=== PATIENT | female | born 1965 | race African-American/Black ===

== ENCOUNTER → 2019-09-13 | Outpatient (CLI) | payer BC | LOC: CAT 13:55 | DX: J32.0 Chronic maxillary sinusitis (principal); J32.9 Chronic sinusitis, unspecified; J34.2 Deviated nasal septum ==

== ENCOUNTER → 2020-06-18 | Outpatient (CLI) | payer BC | LOC: ULTRA 09:23 | PROVIDERS: ATTEND Nurse Practitioner | DX: K80.80 Other cholelithiasis without obstruction (principal); R94.5 Abnormal results of liver function studies; K76.0 Fatty (change of) liver, not elsewhere classified ==

== ENCOUNTER → 2020-07-10 | Outpatient (CLI) | payer BC ==
[~2020-07-10] MED LIST: ADVIL200 M3 PO; AZELASTINE205.5 MCG/ NASAL; BENADRYL25 MG PO; COLACE 100 MG100 MG PO; HYDROCODON-ACE1 EAC7 PO; LOPRESSOR50 MG PO; LOSARTAN-HCTZ1 EAC3 PO; MIRALAX17 GM PO; TUMS200 MG PO; XOLAIR150 MG/1 M SUBQ; ZYRTEC10 M5 PO
== END ==
LOC: LAB 10:12
PROVIDERS: ATTEND Student in an Organized Health Care Education/Training Program
DX: Z01.818 Encounter for other preprocedural examination (principal); Z11.59 Encounter for screening for other viral diseases

== ENCOUNTER 2020-07-14 06:06 | Day surgery (SDC) | payer BC ==
[~2020-07-14] VITALS: Ht 172.7 cm; Wt 139.7 kg
[~2020-07-14 06:06] MED LIST changes: -COLACE 100 MG100 MG PO; -HYDROCODON-ACE1 EAC7 PO; -MIRALAX17 GM PO
[2020-07-14 07:03] LABS: HEMATOCRIT 37.2 % (37.0-47.0); HEMOGLOBIN 12.5 gm/dL (12.0-15.0); MCH 36.3 pg (26.0-34.0); MCHC 33.6 g/dL (28.0-37.0); MCV 108.2 fL (80.0-100.0); RBC 3.44 mil/uL (4.20-5.00); RDW 15.7 % (10.5-14.5); WBC 7.4 thou/uL (4.0-11.0)
[2020-07-14 07:40] LABS: ALBUMIN 3.6 g/dL (3.4-5.0); CALCIUM 9.6 mg/dL (8.5-10.1); CREATININE 1.5 mg/dL (0.6-1.0); POTASSIUM 4.1 mmol/L (3.5-5.1); TOTAL BILIRUBIN 1.4 mg/dL (0.2-1.0); TOTAL PROTEIN 7.6 g/dL (6.4-8.2)
[2020-07-14 08:36] VITALS: BP 125/78
[2020-07-14] MEDS ORDERED: MIRALAX17 GM PO (09:10)
[2020-07-14] MEDS ORDERED: HYDROCODON-ACE1 EAC7 PO (09:10)
[2020-07-14] MEDS ORDERED: COLACE 100 MG100 MG PO (09:10)
[2020-07-14 09:32] VITALS: BP 125/78
--- NOTE | 2020-07-14 16:06 | EKG ---
[facility] [place] [address] ELECTROCARDIOGRAM REPORT Name: ERUM OLMOS Room #: DEP [facility] M.R.#: [id number] Admission: 07/14/20 Attend Phys: Ty Parson MD Discharge: 07/14/20 Date of : 67 Report #: [id number] THIS REPORT FOR: cc: Casey Hopper Steven F. DO Couchonnal, Luis F. MD ~ THIS REPORT FOR: //name// 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: greyson : 1965 Requested By: hSira Mandujano Order Number: [id number] MD: Roosevelt Cottrell Measurements Intervals [place] Rate: 100 P: 70 W[place]: 153 QRS: 28 QRSD: 89 T: 49 QT: 366 QTc: 473 Interpretive Statements Sinus tachycardia Atrial premature complex Consider right atrial enlargement Baseline wander in lead(s) I No previous ECG available for comparison Electronically Signed On 07-14-2020 16:06:24 CDT by Roosevelt Cottrell [email or web address] <ELECTRONICALLY SIGNED> By: Roosevelt Cottrell MD 07/14/20 1606 0639 0639 Roosevelt Cottrell MD /EPI
--- NOTE | 2020-07-17 12:06 | PATH ---
[facility] [address] [place] [address] PATHOLOGY RPT PROCEDURE Name: ERUM OLMOS Room #: DEP [facility] M.R.#: [id number] Admission: 07/14/20 Date of : 67 Discharge: 07/14/20 Report #: [id number] Path Case #: [id number] LCA Accession Number: [id number] . 01 Material submitted: . gallbladder - GALLBLADDER . 01 Clinical history: . SYMPTOMATIC CHOLELITHIASIS DS 07/14 LAPAROSCOPIC CHOLECYSTECTOMY W/GRAMS . 02 Diagnosis: Gallbladder, cholecystectomy: - Mild chronic cholecystitis. - Cholelithiasis. (IUV:pit 07/16/2020) . QTP 07/16/2020 1447 Local . 02 Electronically signed: . Brandy Johnson MD, Pathologist NPI- [id number] . 01 Gross description: . The specimen is received in formalin, labeled "Erum Olmos, sea". Received is an intact gallbladder measuring 10.6 x 2.8 x 2.8 cm in greatest dimensions displaying a blue-peguero serosal surface. Opening the specimen reveals a velvety, bile-stained mucosa with a gallbladder wall thickness of 0.1 cm. Calculi are present displaying a black and multifaceted appearance, and no masses or lesions are noted grossly. Medical Clerical Assistant sections, to include the proximal margin, are submitted in cassette A1. (CAA; 07/15/2020) QA/QA 07/16/2020 1446 Local . 02 Pathologist provided ICD-10: K80.10 . 02 CPT . 134862 Specimen Comment: A courtesy copy of this report has been sent to [phone] Specimen Comment: [phone] Specimen Comment: Report sent to / DR LARA Performed at: [address], [place] [id number] [address] [place] [address] PATHOLOGY RPT PROCEDURE Name: NICKOLASERUM Room #: DEP [facility] Kathy#: [id number] Admission: 07/14/20 Date of : 67 Discharge: 07/14/20 Report #: [id number] Path Case #: [id number] MD Veto Estrada MD Phone: [phone] Performed at: 02 [facility] [place] [address], [place] [id number] MD Brandy Johnson MD Phone: [phone]
== END 2020-07-14 10:30 | disposition home or self-care (01) ==
LOC: OR 06:06 → TBA 06:08 → OR 09:23
PROVIDERS: Anesthesiology; ATTEND Surgery
DX: K80.10 Calculus of gallbladder with chronic cholecystitis without obstruction (principal); E66.01 Morbid (severe) obesity due to excess calories; I10 Essential (primary) hypertension; K21.9 Gastro-esophageal reflux disease without esophagitis; Z98.890 Other specified postprocedural states; Z90.711 Acquired absence of uterus with remaining cervical stump; Z79.899 Other long term (current) drug therapy; Z96.652 Presence of left artificial knee joint; Z98.84 Bariatric surgery status; Z88.2 Allergy status to sulfonamides
CPT/HCPCS: 50010; 50101; 50411; 50555; 50558; 51489; 52265; 52266; 53307; 53310; 53312; 54022; 54118; 55245; 56462; 56525; 56526; 56674; 62110; 62900; 70005

== ENCOUNTER 2020-09-01 15:48 | Emergency (ER) | payer BC ==
[~2020-09-01] VITALS: Ht 172.7 cm; Wt 136.1 kg
[~2020-09-01 15:48] MED LIST changes: +COLACE 100 MG100 MG PO; +HYDROCODON-ACE1 EAC7 PO; +MIRALAX17 GM PO
[2020-09-01 16:57] LABS: BE(vivo) -0.1 mmol/L (-2 to +3); HCO3 23.7 mmol/L (22.0-26.0); PCO2 35.6 mmHg (35.0-45.0); PO2 70.6 mmHg (80.0-100.0); pH 7.441 (7.360-7.450); sO2 94.9 % (92.0-98.0)
[2020-09-01 17:19] LABS: ABSOLUTE NEUTROPHILS 3.8 thou/uL (1.4-8.2); BASOPHILS 0.6 % (0.0-2.0); EOSINOPHILS 1.2 % (0.0-3.0); HEMATOCRIT 30.5 % (37.0-47.0); HEMOGLOBIN 10.4 gm/dL (12.0-15.0); LYMPHOCYTES 35.2 % (24.0-44.0); MCH 36.5 pg (26.0-34.0); MCHC 34.1 g/dL (28.0-37.0); MCV 107.2 fL (80.0-100.0); MONOCYTES 5.9 % (1.0-8.0); PLATELET COUNT 243 thou/uL (150-400); POLYS 57.1 % (36.0-66.0); RBC 2.85 mil/uL (4.20-5.00); RDW 18.7 % (10.5-14.5); WBC 6.7 thou/uL (4.0-11.0)
[2020-09-01] MEDS ORDERED: XARELTO15 MG PO (17:25)
[2020-09-01 18:50] VITALS: BP 140/81
[2020-09-01] MEDS ORDERED: SENNA-DOCUSATE1 EAC1 PO (18:53)
[2020-09-01] MEDS ORDERED: DILAUDID4 MG PO (18:53)
[2020-09-01 19:16] LABS: ANION GAP 8 mmol/L (7-16); BUN 10 mg/dL (7-18); CALCIUM 9.1 mg/dL (8.5-10.1); CHLORIDE 104 mmol/L (98-107); CO2 28 mmol/L (21-32); CREATININE 0.8 mg/dL (0.6-1.0); GLUCOSE 94 mg/dL (74-106); POTASSIUM 3.4 mmol/L (3.5-5.1); SODIUM 140 mmol/L (136-145); TROPONIN-I <0.06 ng/mL (<0.06)
--- NOTE | 2020-09-02 07:43 | EKG ---
[facility] [place] [address] ELECTROCARDIOGRAM REPORT Name: ERUM OLMOS Room #: DEP [facility]#: [id number] Admission: 09/01/20 Attend Phys: Discharge: 09/01/20 Date of : 67 Report #: [id number] THIS REPORT FOR: cc: Casey Hopper Steven F. DO Lundgren, Craig H. 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
== END 2020-09-01 19:37 | disposition home or self-care (01) ==
LOC: ER 15:48
PROVIDERS: Emergency Medicine
DX: I26.99 Other pulmonary embolism without acute cor pulmonale (principal); I10 Essential (primary) hypertension; K21.9 Gastro-esophageal reflux disease without esophagitis; Z90.710 Acquired absence of both cervix and uterus; Z79.899 Other long term (current) drug therapy; Z88.2 Allergy status to sulfonamides; Z88.8 Allergy status to other drugs, medicaments and biological substances

== ENCOUNTER 2020-09-14 12:29 | Emergency (ER) | payer BC ==
[~2020-09-14] VITALS: Ht 172.7 cm; Wt 104.3 kg
[~2020-09-14 12:29] MED LIST changes: +DILAUDID4 MG PO; +SENNA-DOCUSATE1 EAC1 PO; +XARELTO15 MG PO
[2020-09-14 14:11] LABS: URINE BILIRUBIN NEGATIVE (Negative); URINE BLOOD NEGATIVE (Negative); URINE CLARITY CLEAR; URINE COLOR YELLOW; URINE GLUCOSE-RANDOM* NEGATIVE (Negative); URINE KETONES NEGATIVE (Negative); URINE LEUKOCYTES-REFLEX NEGATIVE (Negative); URINE NITRITE-REFLEX NEGATIVE (Negative); URINE PROTEIN (DIPSTICK) NEGATIVE (Negative); URINE SPECIFIC GRAVITY 1.015 (1.005-1.035); URINE UROBILINOGEN 0.2 E.U./dl (0.2-1.0)
[2020-09-14 14:37] LABS: ABSOLUTE NEUTROPHILS 5.8 thou/uL (1.4-8.2); BASOPHILS 0.8 % (0.0-2.0); EOSINOPHILS 0.8 % (0.0-3.0); HEMATOCRIT 31.3 % (37.0-47.0); HEMOGLOBIN 10.4 gm/dL (12.0-15.0); LYMPHOCYTES 23.4 % (24.0-44.0); MCH 35.2 pg (26.0-34.0); MCHC 33.2 g/dL (28.0-37.0); MCV 106.1 fL (80.0-100.0); MONOCYTES 4.4 % (1.0-8.0); PLATELET COUNT 333 thou/uL (150-400); POLYS 70.6 % (36.0-66.0); RBC 2.95 mil/uL (4.20-5.00); RDW 18.1 % (10.5-14.5); WBC 8.2 thou/uL (4.0-11.0)
[2020-09-14 14:55] LABS: CALCIUM 9.6 mg/dL (8.5-10.1); CREATININE 0.8 mg/dL (0.6-1.0); POTASSIUM 3.7 mmol/L (3.5-5.1)
[2020-09-14 14:59] LABS: ALBUMIN 3.4 g/dL (3.4-5.0); TOTAL BILIRUBIN 0.8 mg/dL (0.2-1.0); TOTAL PROTEIN 7.5 g/dL (6.4-8.2)
[2020-09-14 16:09] VITALS: BP 155/97
[2020-09-14] MEDS ORDERED: NORCO 10-325 T1 EACH PO (16:20)
[2020-09-14] MEDS ORDERED: LASIX 40 MG TAB40 MG PO (16:20)
== END 2020-09-14 17:00 | disposition home or self-care (01) ==
LOC: ER 12:29
PROVIDERS: Physician Assistant
DX: R10.32 Left lower quadrant pain (principal); R10.31 Right lower quadrant pain; R22.43 Localized swelling, mass and lump, lower limb, bilateral; I10 Essential (primary) hypertension; K21.9 Gastro-esophageal reflux disease without esophagitis; Z79.899 Other long term (current) drug therapy; Z88.2 Allergy status to sulfonamides; Z88.8 Allergy status to other drugs, medicaments and biological substances; Z90.710 Acquired absence of both cervix and uterus

== ENCOUNTER → 2020-09-30 | Outpatient (CLI) | payer BC ==
[~2020-09-30] MED LIST changes: +LASIX 40 MG TAB40 MG PO; +NORCO 10-325 T1 EACH PO
--- NOTE | 2020-09-30 14:58 | 2DMMODE ---
[facility] [place] [address] 2 D/M-MODE ECHOCARDIOGRAM Name: ERUM JEFFERSON Room #: REG [facility] Kathy#: [id number] Admission: 09/30/20 Attend Phys: Alberto Adams MD Discharge: Date of : 67 Report #: [id number] THIS REPORT FOR: cc: Elaine Wynne Beth RNP Santiago, Patrick MD [facility] ~ APPROVED REPORT Study performed: 09/30/2020 13:43:29 EXAM: Comprehensive 2D, Doppler, and color-flow Echocardiogram Patient Location: Out-Patient Room #: 2 Status: routine BSA: 2.42 HR: 83 bpm BP: 132/86 mmHg Rhythm: NSR Other Information Study Quality: Good Indications Dyspnea Chest Pain Hypertension/HDD Morbid obesity 2D Dimensions IVSd: 10.03 (7-11mm) LVOT Diam: 22.08 (18-24mm) LVDd: 40.59 mm PWd: 10.49 (7-11mm) LVDs: 27.07 (25-40mm) Aortic Root: 32.59 mm IVC: 17.00 mm Volumes Left Atrial Volume (Systole) Single Plane 4CH: 41.81 mL Single Plane 2CH: 48.77 mL LA ESV Index: 21.00 mL/m2 Aortic Valve AoV Peak Atul.: 1.62 m/s AO Peak Gr.: 10.52 mmHg LVOT Max P.30 mmHg LVOT Max V: 1.04 m/s [facility] [address] [place] [address] 2 D/M-MODE ECHOCARDIOGRAM Name: ERUM JEFFERSON Room #: REG [facility]#: [id number] Admission: 09/30/20 Attend Phys: Alberto Adams, Discharge: Date of : 67 Report #: [id number] WINIFRED Vmax: 2.45 cm2 Mitral Valve E/A Ratio: 0.7 MV Decel. Time: 261.17 ms MV E Max Taul.: 0.59 m/s MV A Atul.: 0.82 m/s MV PHT: 75.74 ms IVRT: 133.79 ms Pulmonary Valve PV Peak Atul.: 1.03 m/s PV Peak Gr.: 4.22 mmHg Pulmonary Vein P Vein S: 0.48 m/s P Vein A: 0.28 m/s P Vein D: 0.42 m/s P Vein A Dur.: 106.1 msec P Vein S/D Ratio: 1.14 Tricuspid Valve TR Peak Atul.: 3.55 m/s TR Peak Gr.: 50.34 mmHg PA Pressure: 55.00 mmHg Left Ventricle The left ventricle is normal size. There is normal LV segmental wall motion. There is normal left ventricular wall thickness. The left ventricular systolic function is normal. The left ventricular ejection fraction is within the normal range. LVEF is 55-60%. Grade I - abnormal relaxation pattern. Right Ventricle The right ventricle is normal size. The right ventricular systolic function is normal. Atria The left atrium size is normal. The right atrium size is normal. Aortic Valve The aortic valve is normal in structure. No aortic regurgitation is present. There is no aortic valvular stenosis. Mitral Valve The mitral valve is normal in structure. Trace mitral regurgitation. No evidence of mitral valve stenosis. [facility] [address] [place] [address] 2 D/M-MODE ECHOCARDIOGRAM Name: ERUM JEFFERSON Room #: REG Kathy#: [id number] Admission: 09/30/20 Attend Phys: Alberto Adams, Discharge: Date of : 67 Report #: [id number] Tricuspid Valve The tricuspid valve is normal in structure. There is mild tricuspid regurgitation. Estimated PAP 55 mmHg. There is moderate pulmonary hypertension. Pulmonic Valve The pulmonary valve is normal in structure. There is no pulmonic valvular regurgitation. Great Vessels The aortic root is normal in size. IVC is normal in size and collapses >50% with inspiration. Pericardium There is no pericardial effusion. <Conclusion> Normal left ventricular size and wall thickness Grade 1 diastolic function EF 55-60% Normal right/left atrial size No significant valvular dysfunction Mild tricuspid valve insufficiency Moderate pulmonary hypertension Pulmonary artery systolic pressure estimated at 55 mmHg No pericardial effusion <ELECTRONICALLY SIGNED> By: Santiago Sharp MD, FACC 09/30/20 1458 57 57 Santiago Sharp MD, FAC /INF
== END ==
LOC: CV 09:12
PROVIDERS: ATTEND Internal Medicine
DX: I07.1 Rheumatic tricuspid insufficiency (principal); I26.99 Other pulmonary embolism without acute cor pulmonale; I82.401 Acute embolism and thrombosis of unspecified deep veins of right lower extremity

== ENCOUNTER 2020-12-30 09:07 | Emergency (ER) | payer BC ==
[~2020-12-30] VITALS: Ht 172.7 cm; Wt 127.0 kg
[2020-12-30 09:33] VITALS: BP 139/96
--- NOTE | 2020-12-30 15:25 | EKG ---
[facility] [place] [address] ELECTROCARDIOGRAM REPORT Name: ERUM OLMOS [id number] Admission: 12/30/20 Attend Phys: Discharge: 12/30/20 Date of : 67 Report #: [id number] [facility] ED Test Date: 2020-12-30 Test Time: 09:21:10 Pat Name: ERUM OLMOS Department: Room: Gender: F Entry Level Assistant Manager: ari : 1965 Requested By: Ray Block Order Number: [id number] MD: Santiago Sharp Measurements Intervals [place] Rate: 82 P: 35 ME: 151 QRS: 30 QRSD: 83 T: 32 QT: 383 QTc: 448 Interpretive Statements Sinus rhythm Consider left atrial enlargement Low voltage, precordial leads Compared to ECG 09/01/2020 18:37:12 Low QRS voltage now present ST (T wave) deviation no longer present Electronically Signed On 12-30-2020 15:25:45 FLOORMAN by Santiago Sharp [email or web address] <ELECTRONICALLY SIGNED> By: Santiago Sharp MD, [facility] 12/30/20 1525 0 0 Santiago Sharp MD, [facility] /EPI
== END 2020-12-30 09:56 | disposition home or self-care (01) ==
LOC: ER 09:07
DX: R07.9 Chest pain, unspecified (principal); I10 Essential (primary) hypertension; K21.9 Gastro-esophageal reflux disease without esophagitis; Z90.710 Acquired absence of both cervix and uterus; Z79.899 Other long term (current) drug therapy; Z88.2 Allergy status to sulfonamides; Z88.8 Allergy status to other drugs, medicaments and biological substances

== ENCOUNTER → 2021-02-01 | Outpatient (CLI) | payer BC ==
--- NOTE | 2021-02-01 12:17 | 2DMMODE ---
[facility] [place] [address] 2 D/M-MODE ECHOCARDIOGRAM Name: ERUM OLMOS [id number] Admission: 02/01/21 Attend Phys: Alberto Adams MD Discharge: Date of : 67 Report #: [id number] THIS REPORT FOR: cc: Elaine Wynne Beth RNP Santiago, Patrick MD [facility] ~ APPROVED REPORT Study performed: 02/01/2021 11:31:31 EXAM: Limited 2D, Doppler, and color-flow Echocardiogram Patient Location: Out-Patient Status: routine BSA: 2.38 HR: 74 bpm BP: 132/86 mmHg Rhythm: NSR Other Information Study Quality: Adequate Indications Short of breath, PHTN. 2D Dimensions IVSd: 11.05 (7-11mm) LVDd: 44.31 mm PWd: 10.86 (7-11mm) LVDs: 25.01 (25-40mm) Aortic Valve AoV Peak Atul.: 1.44 m/s AO Peak Gr.: 8.25 mmHg Mitral Valve E/A Ratio: 0.8 MV Decel. Time: 223.58 ms MV E Max Atul.: 0.61 m/s MV A Atul.: 0.73 m/s MV PHT: 64.84 ms Pulmonary Valve PV Peak Atul.: 0.96 m/s PV Peak Gr.: 3.69 mmHg [facility] [address] [place] [address] 2 D/M-MODE ECHOCARDIOGRAM Name: ERUM OLMOS Room #: REG [facility].#: [id number] Admission: 02/01/21 Attend Phys: Alberto Adams, Discharge: Date of : 67 Report #: [id number] Tricuspid Valve TR Peak Atul.: 3.41 m/s RAP Estimate: 5.00 mmHg TR Peak Gr.: 47.00 mmHg PA Pressure: 52.00 mmHg Left Ventricle The left ventricle is normal size. There is normal LV segmental wall motion. There is normal left ventricular wall thickness. Left ventricular systolic function is normal. LVEF is 55-60%. Mild diastolic dysfunction is present (impaired relaxation pattern). Right Ventricle The right ventricle is normal size. The right ventricular systolic function is normal. Atria The left atrium size is normal. The right atrium size is normal. Aortic Valve The aortic valve is normal in structure. No aortic regurgitation is present. There is no aortic valvular stenosis. Mitral Valve The mitral valve is normal in structure. There is no mitral valve regurgitation noted. No evidence of mitral valve stenosis. Tricuspid Valve The tricuspid valve is normal in structure. Mild tricuspid regurgitation. Estimated PAP is 50-55mmHg. Pulmonic Valve Trace pulmonic regurgitation. Great Vessels IVC is normal in size and collapses >50% with inspiration. Pericardium There is no pericardial effusion. <Conclusion> Normal left ventricular size/wall thickness Ejection fraction 60% Grade 1 diastolic dysfunction [facility] [address] [place] [address] 2 D/M-MODE ECHOCARDIOGRAM Name: ERUM OLMOS Room #: REG Kathy#: [id number] Admission: 02/01/21 Attend Phys: Alberto Adams, Discharge: Date of : 67 Report #: [id number] Normal right ventricular size/function Normal atrial size Normal aortic/mitral valve structure and function Mild tricuspid valve insufficiency Moderate pulmonary hypertension PA pressure estimated at 50 mmHg No pericardial effusion <ELECTRONICALLY SIGNED> By: Santiago Sharp MD, FACC 02/01/21 1216 15 15 Santiago Sharp MD, FACC /INF
== END ==
LOC: CARD 01-28 14:06 → CV 01-28 14:06 → CARD 01-28 15:12 → CV 09:42
PROVIDERS: ATTEND Internal Medicine
DX: I07.1 Rheumatic tricuspid insufficiency (principal); I27.20 Pulmonary hypertension, unspecified; R06.02 Shortness of breath; R55 Syncope and collapse

== ENCOUNTER → 2021-02-26 | Outpatient (CLI) | payer BC ==
[~2021-02-26] MED LIST changes: +GABAPENTIN 100100 MG PO; +HYDRALAZINE 2525 M1 PO; +NORCO5 PO; +PERCOCET 10-321 EAC1 PO; +XARELTO20 MG PO
== END ==
LOC: ULTRA 12:34
PROVIDERS: ATTEND Internal Medicine
DX: R07.9 Chest pain, unspecified (principal); I27.24 Chronic thromboembolic pulmonary hypertension; I87.009 Postthrombotic syndrome without complications of unspecified extremity; Z68.41 Body mass index [BMI] 40.0-44.9, adult; Z88.8 Allergy status to other drugs, medicaments and biological substances; Z86.718 Personal history of other venous thrombosis and embolism

== ENCOUNTER → 2021-03-25 | Outpatient (CLI) | payer BC | LOC: RAD 08:47 → NUC 11:45 → RAD 11:50 | PROVIDERS: ATTEND Internal Medicine | DX: I10 Essential (primary) hypertension (principal); R07.9 Chest pain, unspecified; R06.02 Shortness of breath; Z86.718 Personal history of other venous thrombosis and embolism ==

== ENCOUNTER 2021-03-29 20:55 | Inpatient (IN) | payer BC ==
[~2021-03-29] VITALS: Ht 172.7 cm; Wt 129.5 kg
[~2021-03-29 20:55] MED LIST changes: -GABAPENTIN 100100 MG PO; -HYDRALAZINE 2525 M1 PO; -NORCO5 PO; -PERCOCET 10-321 EAC1 PO; -XARELTO20 MG PO
[2021-03-29 21:00] VITALS: BP 193/128
[2021-03-29 21:40] LABS: HEMATOCRIT 35.1 % (37.0-47.0); HEMOGLOBIN 12.1 gm/dL (12.0-15.0); MCH 40.9 pg (26.0-34.0); MCHC 34.6 g/dL (28.0-37.0); MCV 118.4 fL (80.0-100.0); PLATELET COUNT 207 thou/uL (150-400); RBC 2.96 mil/uL (4.20-5.00); RDW 15.7 % (10.5-14.5); WBC 5.5 thou/uL (4.0-11.0)
[2021-03-29 21:49] LABS: CALCIUM 9.3 mg/dL (8.5-10.1); CREATININE 0.6 mg/dL (0.6-1.0); POTASSIUM 4.2 mmol/L (3.5-5.1)
[2021-03-29 21:59] LABS: ALBUMIN 3.5 g/dL (3.4-5.0); DIRECT BILIRUBIN 0.2 mg/dL (<0.1-0.2); TOTAL BILIRUBIN 0.6 mg/dL (0.2-1.0); TOTAL PROTEIN 7.3 g/dL (6.4-8.2); TROPONIN-I 0.57 ng/mL (<0.06)
[2021-03-29] MEDS ORDERED: HYDRALAZINE 2525 M1 PO ×2 (22:11)
[2021-03-29] MEDS ORDERED: XARELTO20 MG PO ×2 (22:12)
[2021-03-29] MEDS ORDERED: PERCOCET 10-321 EAC1 PO ×2 (22:13)
[2021-03-29 22:24] LABS: ABSOLUTE NEUTROPHILS 2.5 thou/uL (1.4-8.2)
[2021-03-29 22:25] LABS: ANISOCYTOSIS 1+; MACROCYTES 3+; PLATELET ESTIMATE NORMAL; POIKILOCYTOSIS 1+; POLYCHROMASIA 1+
[2021-03-29 23:16] VITALS: BP 143/90
[2021-03-29 23:53] VITALS: BP 134/78
[2021-03-30 00:08] VITALS: BP 145/100
[2021-03-30 01:19] LABS: CHOLESTEROL 204 mg/dL (<200); HDL CHOLESTEROL 79 mg/dL (>40); LDL CHOLESTEROL 102 mg/dL (<100); TC:HDL 2.6 Ratio (Not establshd); TRIGLYCERIDE 118 mg/dL (<150); TROPONIN-I 0.48 ng/mL (<0.06); VLDL 24 mg/dL (<40)
--- NOTE | 2021-03-30 01:19 | NUR ---
PATIENT IS A NEW ADMISSION TO THE UNIT THIS SHIFT. SHE ARRIVED VIA WHEELCHAIR FROM ER AND WAS ABLE TO AMBULATE TO THE BED WITH ASSISTANCE INCIDENT FREE. PATIENT IS FULLY ALERT AND ORIENTED AND ABLE TO PARTICIPATE IN ADMISSION. CHIEF COMPLAINT IS CHRONIC PAIN IN CHEST AND FEET. NURSE TO COMPLETE ADMISSION AND INITIATE PLAN OF CARE.
[2021-03-30 01:22] LABS: SERUM ASSESSMENT Clear
[2021-03-30 04:46] VITALS: BP 135/83
--- NOTE | 2021-03-30 06:42 | EKG ---
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
--- NOTE | 2021-03-30 06:42 | EKG ---
[address] [place] [address] ELECTROCARDIOGRAM REPORT Name: OLMOSERUM Room #: 200-I ADM IN M.R.#: [id number] Admission: 03/29/21 Attend Phys: Lupillo Estrada MD Discharge: Date of : 67 Report #: [id number] [facility] ED Test Date: 2021-03-29 Test Time: 21:15:50 Pat Name: ERUM OLMOS Department: Room: 200 Gender: F Obstetrics Gyn Physician: BALDOMERO : 1965 Requested By: Christianne Hassan Order Number: [id number] MD: Santiago Sharp Measurements Intervals [place] Rate: 98 P: 66 [place]: 167 QRS: 56 QRSD: 85 T: 43 QT: 355 QTc: 454 Interpretive Statements Sinus rhythm Probable left atrial enlargement Compared to ECG 12/30/2020 09:21:10 No significant changes Electronically Signed On 03-30-2021 6:42:41 CDT by Santiago Sharp [email or web address] <ELECTRONICALLY SIGNED> By: Santiago Sharp MD, [facility] 03/30/21 0642 14 Santiago Sharp MD, FACC /EPI
--- NOTE | 2021-03-30 06:43 | NUR ---
NURSE CALLED TO PATIENTS ROOM AT 0630 WITH COMPLAINTS OF FOOT AND CHEST PAIN. DURING NURSES ASSESSMENT OF PATIENTS PAIN PATIENT BECAME AGITATED AT STAFF AND STATED "I GUESS YOU GUYS AREN'T GOING TO DO ANYTHING ABOUT THIS PAIN!" NURSE INFORMED PATIENT THAT WE NEED TO PROPERLY ASSESS SITUATION AND THAT HER COMPLAINTS WERE BEING TAKEN SERIOUSLY. STAT EKG ORDERED WHICH NURSE AND GLUE CLAMP OPERATOR WERE UNABLE TO OBTAIN DUE TO PATIENTS FRANTIC MOVEMENTS. NURSE EXCUSED HIMSELF FROM ROOM AND CALLED PUMP HOUSE TECHNICIAN IN HOPES OF HER BEING ABLE TO OBTAIN A TRUE EKG.
[2021-03-30 07:09] VITALS: BP 169/101
[2021-03-30 07:28] LABS: CALCIUM 9.2 mg/dL (8.5-10.1); CREATININE 0.6 mg/dL (0.6-1.0)
[2021-03-30 07:30] LABS: POTASSIUM 4.4 mmol/L (3.5-5.1)
[2021-03-30 07:37] LABS: TROPONIN-I 0.27 ng/mL (<0.06)
--- NOTE | 2021-03-30 08:30 | EKG ---
[place] [address] 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
--- NOTE | 2021-03-30 10:03 | 2DMMODE ---
[facility] [place] [address] 2 D/M-MODE ECHOCARDIOGRAM Name: ERUM OLMOS Room #: 200-I ADM IN M.R.#: [id number] Admission: 03/29/21 Attend Phys: Adiel Robledo MD Discharge: Date of : 67 Report #: [id number] THIS REPORT FOR: cc: Elaine Wynne Beth RNP Santiago, Patrick MD [facility] ~ APPROVED REPORT Study performed: 03/30/2021 08:15:51 EXAM: Limited 2D, Doppler, and color-flow Echocardiogram Patient Location: Echo lab Room #: 200 Status: routine BSA: 2.37 HR: 78 bpm BP: 169/101 mmHg Rhythm: NSR Other Information Study Quality: Adequate Technically limited study due to morbid obesity. Indications Chest pain, elevated troponin, edema, NSTEMI. Hx: PHTN, HTN, HLP. 2D Dimensions IVSd: 10.12 (7-11mm) LVDd: 40.98 mm PWd: 9.71 (7-11mm) LVDs: 27.79 (25-40mm) Aortic Valve AoV Peak Atul.: 1.38 m/s AO Peak Gr.: 7.67 mmHg Mitral Valve E/A Ratio: 0.8 MV Decel. Time: 265.76 ms MV E Max Atul.: 0.71 m/s MV A Atul.: 0.94 m/s MV PHT: 77.07 ms Tricuspid Valve [facility] [address] [place] [address] 2 D/M-MODE ECHOCARDIOGRAM Name: ERUM OLMOS Room #: 200-I ADM IN M.R.#: [id number] Admission: 03/29/21 Attend Phys: Adiel Robledo MD Discharge: Date of : 67 Report #: [id number] TR Peak Atul.: 3.23 m/s RAP Estimate: 5.00 mmHg TR Peak Gr.: 42.00 mmHg PA Pressure: 47.00 mmHg Left Ventricle The left ventricle is normal size. There is normal LV segmental wall motion. There is normal left ventricular wall thickness. Left ventricular systolic function is normal. LVEF is 60-65%. Mild diastolic dysfunction is present (impaired relaxation pattern). Right Ventricle The right ventricle is normal size. The right ventricular systolic function is normal. Atria The left atrium size is normal. The right atrium size is normal. Aortic Valve The aortic valve is normal in structure. No aortic regurgitation is present. There is no aortic valvular stenosis. Mitral Valve The mitral valve is normal in structure. Trace mitral regurgitation. No evidence of mitral valve stenosis. Tricuspid Valve The tricuspid valve is normal in structure. Mild tricuspid regurgitation. Estimated PAP is 45-50mmHg. Pulmonic Valve Pulmonic valve is not well visualized. Great Vessels The aortic root is normal in size. IVC is normal in size and collapses >50% with inspiration. Pericardium There is no pericardial effusion. <Conclusion> Normal left ventricular size/wall thickness Ejection fraction 65%, no segmental wall motion abnormality Normal right ventricular size/function Normal atrial size [facility] [address] [place] [address] 2 D/M-MODE ECHOCARDIOGRAM Name: ERUM OLMOS Room #: 200-I [facility] IN ..#: [id number] Admission: 03/29/21 Attend Phys: Adiel Robledo MD Discharge: Date of : 67 Report #: [id number] Color-flow Doppler study was performed of the aortic/mitral/tricuspid/pulmonary valve Normal aortic/mitral valve structure and function Mild tricuspid valve insufficiency Pulmonary systolic pressure estimated 45-50 mmHg No pericardial effusion Normal aortic root size. <ELECTRONICALLY SIGNED> By: Santiago Sharp MD, FACC 03/30/211002 02 02 Santiago Sharp MD, FACC /INF
[2021-03-30 12:05] VITALS: BP 147/91
[2021-03-30 15:13] VITALS: BP 142/98
--- NOTE | 2021-03-30 16:39 | NUR ---
AAOX4. DISATISFIED WITH NIGHT RN. SR PER TELE. HTN NOTED AND TREATED ORDERED. FALL PRECAUTIONS IN PLACE.
[2021-03-30 20:22] VITALS: BP 139/87
[2021-03-30 23:06] LABS: GLYCOHEMOGLOBIN (HGB A1C) 5.1 % (4.8-5.6)
[2021-03-31] VITALS (16 sets, daily range): BP systolic 111–138; BP diastolic 62–94
--- NOTE | 2021-03-31 04:55 | NUR ---
SLEPT PART OF SHIFT. DENIES COMPLAINTS OF CHEST PAIN THIS SHIFT. NEUROPATHY PAIN TO FEET AND LOWER EXTREMITIES L>R WITH NOTED RELIEF PAST PAIN MEDICATIONS. UP WITH CANE WITH STEADY GAIT, STATES SHE ALWAYS USES CANE. MAINTAIN SAFE ENVIRONMENT. STATES DOES NOT NEED ASSISTANCE WHEN UP. STATES WHEN SHE FIRST CAME IN SHE COULD BARELY WALK. WORKING ON GOALS AND PLAN OF CARE FOR NOC. NPO PAST [place] FOR AM HEART CATH. MEDS GIVEN WITH SIP OF WATER. CONTINUE TO ASSES NEEDED.
--- NOTE | 2021-03-31 09:20 | EKG ---
[address] [address] ELECTROCARDIOGRAM REPORT Name: ERUM OLMOS Room #: 200-I ADM IN M.R.#: [id number] Admission: 03/29/21 Attend Phys: Adiel Robledo MD Discharge: Date of : 67 Report #: [id number] [facility] Test Date: 2021-03-31 Test Time: 07:25:34 Pat Name: ERUM OLMOS Department: Room: 200 I Gender: F Manager Diesel: MARY KATE : 1965 Requested By: Rolanda Viadl Order Number: [id number] MD: Oskar Sales Measurements Intervals [place] Rate: 66 P: 27 AL: 173 QRS: 22 QRSD: 81 T: 34 QT: 423 QTc: 444 Interpretive Statements Sinus rhythm Compared to ECG 03/30/2021 06:58:01 No significant changes Electronically Signed On 03-31-2021 9:20:17 CDT by Oskar Sales [email or web address] <ELECTRONICALLY SIGNED> By: Oskar Sales MD, [facility] 03/31/21919 4 4 Oskar Sales MD, FACC /EPI
--- NOTE | 2021-03-31 09:48 | NUR ---
Admit with chest pain. Class III extreme obesity, BMI 43.7. Hx: pulmonary HTN, gastric bypass 2004. NPO for cardiac cath today. On lipitor. No hx diabetes and A1C is wnl 5.1 this admit. Will follow up to determine if pt ready for lifestyle/dietary changes. Otherwise low nutrition risk.
--- NOTE | 2021-03-31 16:54 | CATHLAB ---
[facility] [place] [address] INVASIVE PROCEDURE REPORT Name: ERUM OLMOS Room #: 200-I ADM IN M.R.#: [id number] Admission: 03/29/21 Attend Phys: Adiel Robledo MD Discharge: Date of : 67 Report #: [id number] THIS REPORT FOR: cc: Elaine Wynne Beth RNP Mancuso, Gerald M. MD [facility] ~ APPROVED REPORT Study performed: 03/31/2021 11:37:07 Patient Details Patient Status: In-Patient Room #: The patient is a 55 year-old female Event Personnel Markie Cormier Insulator Technician, Dee Nick RT(R)() Monitor, Tosin Guido RTR Scrub, Holly Lara RN RN, Chirag Groves RN data conversion analyst Performed Art Access - R femoral artery* Left Heart Cath w/or w/o Coronaries [id number] [facility] Hemostasis w/ Mynx 54590 Initial Mod Sed Same Phys/QHP Gr5y 601380 Procedure Narrative The Right Groin^ was infiltrated with subcutaneous anesthesia. A PINNACLE 6FR Sheath #[id number] sheath was inserted into the RFA 6F^. Coronary angiography was performed using coronary diagnostic catheters. The right coronary system was accessed and visualized with a JR4 catheter. The left coronary system was accessed and visualized with a JL4 catheter. The left ventricle was accessed and visualized with a PIGTAIL catheter. The patient tolerated the procedure well and there were no complications associated with the procedure. There was no hematoma. Intraoperative Conscious Sedation Fentanyl 100 mcg Versed 2 mg Fluoro Time: 1.70 minutes Dose: DAP 5470.00 cGycm2 Contrast Type and Amount: Omnipaque 54 ml Hemodynamics The aortic pressure is 143/83 mmHg with a mean of 116 mmHg. The left [facility] [address] [place] [address] INVASIVE PROCEDURE REPORT Name: ERUM OLMOS Room #: 200-I ADM IN M.R.#: [id number] Admission: 03/29/21 Attend Phys: Adiel Robledo MD Discharge: Date of : 67 Report #: [id number] ventricular pressure is 162/6 mmHg with a mean of mmHg. The left ventricular end diastolic pressure is 25 mmHg. Conclusion #1. Normal left ventricular size and systolic function EF 55 to 60% #2 abdominal aorta is intact with mild tortuosity no occlusive disease or aneurysm. #3 left main is long with mild irregularity giving rise to LAD and circumflex widely patent #4 LAD with mild and minimal disease in the mid vessel no occlusive disease widely patent around the apex. #5 circumflex OM widely patent nondominant but moderate distribution. #6 eccentric proximal 30% lesion in the dominant right coronary artery no occlusive disease. Recommendations plan: Continue aggressive risk factor modification. No indication for coronary intervention. Etiology of chest pain is noncardiac. <ELECTRONICALLY SIGNED> By: aMrkie Cormier MD, FACC 03/31/211652 52 52 Markie Cormier MD, FAC /INF
--- NOTE | 2021-03-31 20:27 | NUR ---
PT IS AXOX4, PLEASANT; NPO SINCE MIDNIGHT; CARDIAC CATH SCHEDULED. VSS, AFEBRILE, PT C/O PAIN IN CHEST BELOW THE LEFT BREAST, AND PERIPHERAL NEUROPATHY BOTTOM OF FEET. CARDIAC CATH NO INTERVENTIONS, MYNX CLOSURE R GROIN, SITE C/D/I, NO HEMATOMA. POC IS TO CONTINUE PAIN MGMT. PT TO D/C TOMORROW PER CARDIOLOGY. LOW FALL PRECAUTIONS IN PLACE. PT HAS PERSONAL ITEMS WITHIN REACH, AND USES CANE. NO CONCERNS AT THIS TIME.
[2021-04-01 00:27] VITALS: BP 130/88
[2021-04-01 00:30] VITALS: BP 130/88
[2021-04-01 04:25] VITALS: BP 138/95
[2021-04-01 04:30] VITALS: BP 139/95
--- NOTE | 2021-04-01 04:47 | NUR ---
SLEPT PART OF SHIFT. STATES THAT FELT GOOD. PAIN MEDICATION GIVEN FOR NON CARDIAC PAIN AND FEET PAIN. WORKING ON GOALS AND PLAN OF CARE FOR NOC. WISHS THEY COULD FIND OUT WHY SHE IS IN PAIN. JUST WANTS TO KNOW A REASON. RIGHT GROIN SITE REMAINS WITH NO HEMATOMA, OR BLEEDING, DRESSING C/D/I. PROGRESSING TOWARDS DISCHARGE GOALS TODAY. CONTINUE TO ASSES CLOSELY.
[2021-04-01 07:12] VITALS: BP 136/85
[2021-04-01] MEDS ORDERED: GABAPENTIN 100100 MG PO ×2 (09:54)
[2021-04-01] MEDS ORDERED: NORCO5 PO ×2 (10:05)
[2021-04-01 10:37] VITALS: BP 136/85
--- NOTE | 2021-04-01 11:46 | NUR ---
PT ALERT AND ORIENTED TIMES FOUR, WITH SOMEWHAT BLUNTED AFFECT. VSS. SR ON TELE. PT C/O PAIN PRN PAIN MEDICATIOS CONTROLLING PAIN WELL. PT TOLERATES MEDS AND MEALS. UP TO BSC WITH ASSIST OF ONE. PLANS FOR DISCHARGE TODAY. WILL CONTINUE TO MONITOR.
[2021-04-01] MEDS ORDERED: PERCOCET 10-321 EAC1 PO (14:12)
== END 2021-04-01 13:23 | disposition home or self-care (01) | DRG 280 ==
LOC: ER 20:55 → EROBS 22:49 → 2N 22:49
PROVIDERS: Emergency Medicine; Nurse Practitioner Family; ADMIT Hospitalist; ATTEND Hospitalist
DX: I21.4 Non-ST elevation (NSTEMI) myocardial infarction (principal); I26.99 Other pulmonary embolism without acute cor pulmonale; Z68.41 Body mass index [BMI] 40.0-44.9, adult; I16.0 Hypertensive urgency; Z96.652 Presence of left artificial knee joint; K21.9 Gastro-esophageal reflux disease without esophagitis; I27.20 Pulmonary hypertension, unspecified; E66.01 Morbid (severe) obesity due to excess calories; G89.29 Other chronic pain; I10 Essential (primary) hypertension; E78.5 Hyperlipidemia, unspecified; R07.89 Other chest pain; Z88.8 Allergy status to other drugs, medicaments and biological substances; Z86.718 Personal history of other venous thrombosis and embolism; Z88.2 Allergy status to sulfonamides; Z90.711 Acquired absence of uterus with remaining cervical stump; Z82.49 Family history of ischemic heart disease and other diseases of the circulatory system
CPT/HCPCS: 10081

== ENCOUNTER → 2021-04-01 | Outpatient (CLI) | payer BC ==
[~2021-04-01] VITALS: Ht 172.7 cm; Wt 130.6 kg
[~2021-04-01] MED LIST changes: +GABAPENTIN 100100 MG PO; +HYDRALAZINE 2525 M1 PO; +NORCO5 PO; +PERCOCET 10-321 EAC1 PO; +XARELTO20 MG PO
[2021-04-01 14:13] VITALS: BP 155/97
--- NOTE | 2021-04-01 14:42 | NUR ---
Pain Clinic Assessment: 1. History of Osteoarthritis: Left Lower Extremity Left Upper Extremity History of Rheumatoid Arthritis: Not Applicable 2. Height: 5 ft. 8 in. 172.7 cm. Weight: 288.0 lb. oz. 130.636 kg. Patient's BMI: 43.8 3. Vital Signs: BP: 155/97 Pulse: 71 Resp: 16 Temp: 02 Sat: 100 ECG Mon: 4. Pain Intensity: 8 5. Fall Risk: Dizziness: N Needs help standing or walking: N Fallen in the last 3 months: N Fall risk comments: 6. Patient on Blood Thinner: XERALTO 7. History of Hypertension: Y 8. Opioid Therapy greater than 6 weeks: Y Opiate Contract Signed: 9. Risk Assessment Tool Provided: low 10. Functional Assessment Tool: 62/70 11. Recreational Drug Use: Never Drug Type: Tobacco Use: Never Smoker Tobacco Type: Amount or Packs/day: How Many Years: Alcohol Use: Unknown Frequency: Special Occasions Quant: 1-2
== END ==
LOC: PAIN 13:13
PROVIDERS: ATTEND Anesthesiology Pain Medicine
DX: M54.5 Low back pain (principal); M25.561 Pain in right knee; M79.641 Pain in right hand; M79.642 Pain in left hand; I73.9 Peripheral vascular disease, unspecified; Z79.01 Long term (current) use of anticoagulants; Z88.8 Allergy status to other drugs, medicaments and biological substances; Z79.899 Other long term (current) drug therapy

== ENCOUNTER 2021-05-20 12:52 | Emergency (ER) | payer BC ==
[~2021-05-20] VITALS: Ht 172.7 cm; Wt 130.6 kg
[2021-05-20 14:21] LABS: ABSOLUTE NEUTROPHILS 4.3 thou/uL (1.4-8.2); EOSINOPHILS 0.1 % (0.0-3.0); HEMOGLOBIN 11.5 gm/dL (12.0-15.0)
[2021-05-20 14:24] LABS: BASOPHILS 0.3 % (0.0-2.0); HEMATOCRIT 34.2 % (37.0-47.0); LYMPHOCYTES 21.8 % (24.0-44.0); MCH 40.1 pg (26.0-34.0); MCHC 33.6 g/dL (28.0-37.0); MCV 119.2 fL (80.0-100.0); MONOCYTES 5.5 % (1.0-8.0); PLATELET COUNT 270 thou/uL (150-400); POLYS 72.3 % (36.0-66.0); RBC 2.87 mil/uL (4.20-5.00); WBC 5.9 thou/uL (4.0-11.0)
[2021-05-20 14:33] LABS: CALCIUM 9.2 mg/dL (8.5-10.1); POTASSIUM 4.5 mmol/L (3.5-5.1)
[2021-05-20 14:43] LABS: ALBUMIN 3.3 g/dL (3.4-5.0); TOTAL BILIRUBIN 1.3 mg/dL (0.2-1.0); TOTAL PROTEIN 7.2 g/dL (6.4-8.2); TROPONIN-I 0.1 ng/mL (<0.06)
[2021-05-20 14:53] LABS: APTT 24.5 Seconds (24.5-32.8); INR 1.07; PROTIME 11.6 Seconds (10.5-12.1)
[2021-05-20 15:55] LABS: ANISOCYTOSIS 1+; MACROCYTES 2+; PLATELET ESTIMATE NORMAL
[2021-05-20 20:52] VITALS: BP 125/100
--- NOTE | 2021-05-21 07:18 | EKG ---
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1965 Requested By: Kat Parks Order Number: [id number] MD: Santiago Sharp Measurements Intervals [place] Rate: 91 P: 60 WY: 147 QRS: 101 QRSD: 88 T: -34 QT: 420 QTc: 517 Interpretive Statements Sinus rhythm Probable RVH w/ secondary repol abnormality Prolonged QT interval Baseline wander in lead(s) V1,V2,V3,V5 Compared to ECG 03/31/2021 07:25:34 Prolonged QT interval now present Electronically Signed On 05-21-2021 7:18:24 CDT by Santiago Sharp [email or web address] <ELECTRONICALLY SIGNED> By: Santiago Sharp MD, [facility] 05/21/21717 18 18 Santiago Sharp MD, FAC /EPI
--- NOTE | 2021-05-25 12:45 | HC ---
[facility] [place] [address] CONSULTATION Name: NICKOLASERUM Room #: DEP [facility] [id number] Admission: 05/20/21 Attend Phys: Discharge: 05/20/21 Date of : 67 Report #: [id number] THIS REPORT FOR: cc: Elaine Wynne Beth RNP Khosla, Parveen K. MD ~ DOC #: [id number] Jacob Vazquez MD DATE OF SERVICE: 05/20/2021 HISTORY OF PRESENT ILLNESS: This is a 55-year-old female patient who has a complicated medical problem. The patient's history is complicated and sometime contradictory compared to what is available in the chart. That made the evaluation initially very difficult, but subsequently the situation did clear up. She gave multiple histories in this patient. Neurologically, her symptoms were that she had difficulty with ambulation. Initially, she said this started this morning, but later on when I reviewed the records, it will appear that there was some note for it in the last month then she has some difficulty with ambulation since the diagnosis of DVT, but it became significantly worse this morning and the symptoms became more worse on the left side as compared to the right side. Right side, she does have a known DVT. She tells me that diagnosis was made in [place] and she was started on blood thinner, which she takes on a regular basis. She said she has significant weakness in both legs, more so on the left leg compared to the right leg. Arms are working better, but she has pain in the chest. She has seen multiple cardiologists, the pain is in the chest and no cause has been found for that. She has a history of total knee, hysterectomy. She gives a history that she had a back surgery in the past. She does have a history of hypertension and pulmonary embolism. Initially, she said she has blurry vision in the left eye. She was pretty unclear any further history. Subsequently, it became clear that blurry vision is going on at least for several days, but maybe longer. She says she has been diagnosed with cataracts and the vision clears up in the evening, but she is worse in the morning. That was a relevant 14-point review of system. PAST MEDICAL HISTORY: Positive for DVT, morbid obesity, pulmonary embolus. FAMILY HISTORY: Unremarkable. PHYSICAL EXAMINATION: Indicated she was alert and responsive. Her speech looks unremarkable. Cranial nerve examination on my examination, she does not have any pronounced visual deficit, but I could not look at the fundus in this patient. Upper extremity, neuromuscular examination looks unremarkable, but lower extremity examination was markedly abnormal. She said she has no position [address] [place] [address] CONSULTATION Name: OLMOSCRYSTALERUM Room #: DEP SONIA Chavez#: [id number] Admission: 05/20/21 Attend Phys: Discharge: 05/20/21 Date of : 67 Report #: [id number] sense in the left leg. She has difficult feeling with the touch or pain there. She was able to move the left and the right leg, but she was profoundly weak there. Both plantars were mute. She could not do heel to gannon because she was so weak there. Pulses were diminished and they are going to check on that. IMPRESSION: This is a complicated case and multiple diagnoses need to be considered in this patient. I was concerned with the patient's profound weakness in the legs and complete loss of position sense, but I do not know how long this is going on. From all indication and review of the record, it was going on for some time, at least since last month, but has become worse today. The main differential to exclude in this patient will be an epidural hematoma, but that usually does not affect one side and her left leg is affected, right leg she thinks is about the same. MRI of the brain does not show any CVA. Therefore, CVA is not the cause of the patient's problem. MRI of the thoracolumbar spine is loss in the computer glitches, but they are going to deliver the report to the Emergency Room physician. They will look at it and call the spine physician if any abnormality is found and I will defer that to them since I do not do any spine. The main emphasis should be to look for focal abnormalities including arterial and venous abnormality and they are already in the process of working for that. It looks like they are going to do the arterial Doppler and then decide if any focal pathology is there, which that can explain the symptoms, but they should also look at the thoracolumbar spine to make sure there is no pathology there and the pathologist informed they should consult appropriate consultant luxury and auto. vice president [employer] (ex ). This patient does not have any stroke, which can explain the patient's symptoms in the left lower extremity. She could not cooperate with MRA of the elim ira of [place] and that was canceled because she could not carry on the MRI anymore. We will not pursue it for the time being as there is no stroke. The duration of this patient's symptoms are not even clear. She may have woken up with these symptoms. She was not a TPA candidate because of the timeframe and being on Xarelto. On examination, she did not mill turner to be stroke anyway. I think the present emphasis should be to evaluate the pathology, which was subsequently recognized in the left lower extremity, both arterial and venous pathology. Thank you very much for this referral and if you have any questions, please feel free to contact me. She does need some workup of the left eye. For that an ophthalmology consult can be done if one can be arranged. I did order a sed rate to complete the workup, but it does not look like temporal arteritis. If she had thrombus in spite of being on anticoagulation, she may need further evaluation by milk treater, which I will defer to you, but presently I do not think there is any evidence to suggest intracranial sinus thrombosis, but if any [address] [address] CONSULTATION Name: ERUM OLMOS Room #: DEP Kathy#: [id number] Admission: 05/20/21 Attend Phys: Discharge: 05/20/21 Date of : 67 Report #: [id number] symptoms appear she will need to be evaluated for that. More than 50 minutes of time was spent taking care of this patient today and majority was spent counseling and coordinating. MD KASEY Johnson/ROSEN/CHUYITA <ELECTRONICALLY SIGNED> By: Jacob Vazquze MD 05/25/21 1245 1802 0117 Jacob Vazquez MD /nt
== END 2021-05-20 20:45 | disposition short-term general hospital (02) ==
LOC: ER 12:52
PROVIDERS: Nurse Practitioner Family
DX: I82.432 Acute embolism and thrombosis of left popliteal vein (principal); Z20.822 Contact with and (suspected) exposure to COVID-19; I26.94 Multiple subsegmental thrombotic pulmonary emboli without acute cor pulmonale; I77.1 Stricture of artery; E66.01 Morbid (severe) obesity due to excess calories; I10 Essential (primary) hypertension; Z88.6 Allergy status to analgesic agent; Z88.8 Allergy status to other drugs, medicaments and biological substances; Z96.652 Presence of left artificial knee joint; Z90.710 Acquired absence of both cervix and uterus

== ENCOUNTER 2021-05-29 18:20 | Inpatient (IN) | payer BC ==
[~2021-05-29] VITALS: Ht 152.4 cm; Wt 130.6 kg
[2021-05-29 18:35] VITALS: BP 159/95
[2021-05-29] MEDS ORDERED: ASA81BEC PO (18:47)
[2021-05-29] MEDS ORDERED: ZYRTEC10 M5 PO (18:48)
[2021-05-29] MEDS ORDERED: COLACE100 MG PO (18:48)
[2021-05-29] MEDS ORDERED: ENOXAPARIN120 MG/0.1 SUBQ (18:49)
[2021-05-29] MEDS ORDERED: NEURONTIN100 MG PO (18:50)
[2021-05-29] MEDS ORDERED: ZESTRIL40 MG PO (18:50)
[2021-05-29 21:38] LABS: ABSOLUTE NEUTROPHILS 5.5 thou/uL (1.4-8.2); BASOPHILS 0.8 % (0.0-2.0); EOSINOPHILS 0.4 % (0.0-3.0); HEMATOCRIT 22.6 % (37.0-47.0); HEMOGLOBIN 7.7 gm/dL (12.0-15.0); LYMPHOCYTES 19.3 % (24.0-44.0); MCH 40.1 pg (26.0-34.0); MCHC 33.9 g/dL (28.0-37.0); MCV 118.3 fL (80.0-100.0); PLATELET COUNT 239 thou/uL (150-400); POLYS 70.5 % (36.0-66.0); RBC 1.91 mil/uL (4.20-5.00); RDW 16.2 % (10.5-14.5); WBC 7.9 thou/uL (4.0-11.0)
[2021-05-29 21:54] LABS: ANION GAP 9 mmol/L (7-16); BUN 11 mg/dL (7-18); CALCIUM 8.9 mg/dL (8.5-10.1); CHLORIDE 104 mmol/L (98-107); CO2 25 mmol/L (21-32); CREATININE 0.9 mg/dL (0.6-1.0); GLUCOSE 94 mg/dL (74-106); POTASSIUM 4.1 mmol/L (3.5-5.1); SODIUM 138 mmol/L (136-145)
[2021-05-29 22:07] LABS: DIRECT BILIRUBIN 0.9 mg/dL (<0.1-0.2); MAGNESIUM 1.6 mg/dL (1.8-2.4); SGOT 13 U/L (15-37); SGPT 14 U/L (14-59); TOTAL PROTEIN 6.5 g/dL (6.4-8.2); TROPONIN-I <0.06 ng/mL (<0.06)
[2021-05-29 22:14] LABS: ANISOCYTOSIS 1+; MACROCYTES 3+; POLYCHROMASIA 1+
[2021-05-30 04:32] VITALS: BP 125/87
[2021-05-30 07:57] VITALS: BP 126/89
--- NOTE | 2021-05-30 08:13 | EKG ---
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1965 Requested By: Christianne Hassan Order Number: [id number] MD: Santiago Sharp Measurements Intervals [place] Rate: 115 P: 70 MS: 142 QRS: 78 QRSD: 103 T: -17 QT: 347 QTc: 480 Interpretive Statements Sinus tachycardia Nonspecific T abnormalities, anterior leads Artifact in lead(s) I,III,aVL,V2 Compared to ECG 05/20/2021 13:19:04 T-wave abnormality now present Sinus rhythm no longer present Prolonged QT interval no longer present Electronically Signed On 05-30-2021 8:12:57 CDT by Santiago Sharp [email or web address] <ELECTRONICALLY SIGNED> By: Santiago Sharp MD, FAC 05/30/21811 182 182 Santiago Sharp MD, [facility] /EPI
[2021-05-30 09:19] LABS: HEMATOCRIT 21.8 % (37.0-47.0); HEMOGLOBIN 7.4 gm/dL (12.0-15.0); MCH 39.5 pg (26.0-34.0); MCHC 33.8 g/dL (28.0-37.0); MCV 116.9 fL (80.0-100.0); RBC 1.86 mil/uL (4.20-5.00); WBC 10.3 thou/uL (4.0-11.0)
[2021-05-30 09:39] LABS: CALCIUM 8.8 mg/dL (8.5-10.1); CREATININE 0.9 mg/dL (0.6-1.0); POTASSIUM 4.1 mmol/L (3.5-5.1)
[2021-05-30 13:43] VITALS: BP 117/70
[2021-05-30 15:35] VITALS: BP 103/63
--- NOTE | 2021-05-30 17:09 | NUR ---
CARE TAKEN OVER THIS AM, PT ALERT AND ORIENTED X4, DENIES CHEST PAIN, NAUSEA AND VOMITTING. PT ON ROOM AIR. BLE LEG PAIN AND INCISION WITH IDALMIS. LLE DRESSING CHANGE AFTER PT CRYING AND COMPLAINING OF SEVERE THROBBING PAIN. MORPHINE GIVEN PER ORDERED. UP TO BATHROOM WITH CAN. NO ORDERS NEEDS VERÓNICA
[2021-05-30 19:56] VITALS: BP 112/68
[2021-05-31 04:56] VITALS: BP 112/68
--- NOTE | 2021-05-31 05:15 | NUR ---
Patient continues to have significant bilateral left pain and swelling. Jigar wrap intact. Able to ambulate to bathroom with cane. Last dose of Morphine and Oxycodone for pain given with some relief. Vital signs and rhythm stable. Patient anxious to go home.
[2021-05-31 07:50] VITALS: BP 110/70
[2021-05-31] MEDS ORDERED: ELIQUIS5 MG PO ×2 (08:02→08:03)
[2021-05-31] MEDS ORDERED: PRAMIPEXOLE DIHY1 MG PO (08:03)
[2021-05-31] MEDS ORDERED: NEURONTIN 300M300 M2 PO (08:03)
[2021-05-31] MEDS ORDERED: PERCOCET 10-321 EACH PO (10:04)
[2021-05-31 11:30] VITALS: BP 110/70
--- NOTE | 2021-05-31 12:47 | NUR ---
DISCHARGE ORDERS IN. INCISION WOUND WITH IDALMIS IN PLACE, PICTURES TAKEN AND WOUND CARE COMPLETED. NEW MED INFO A ND PAIN MED SCRIPT GIVEN TO PT. PT AWARE TO GO SEE VASCULAR AND PCP NEXT WEEK. IV AND TELE D/C. WAITING ON PT RIDE
--- NOTE | 2021-05-31 16:11 | NUR ---
RECEIVED ORDERS FOR P.T. EVAL AND TREAT. CHART REVIEWED. UNFORTUNATELY, Pt WAS D/C PRIOR TO BEING EVAL. SO UNABLE TO DO EVAL.
== END 2021-05-31 15:05 | disposition home or self-care (01) | DRG 73 ==
LOC: ER 18:20 → EROBS 05-30 03:01 → 3W 05-30 04:04
PROVIDERS: Emergency Medicine; Nurse Practitioner Family; ADMIT Internal Medicine; ATTEND Internal Medicine
DX: G62.9 Polyneuropathy, unspecified (principal); I26.99 Other pulmonary embolism without acute cor pulmonale; Z68.43 Body mass index [BMI] 50.0-59.9, adult; D68.59 Other primary thrombophilia; I16.0 Hypertensive urgency; D64.9 Anemia, unspecified; R07.9 Chest pain, unspecified; I10 Essential (primary) hypertension; E66.01 Morbid (severe) obesity due to excess calories; Z96.652 Presence of left artificial knee joint; Z90.49 Acquired absence of other specified parts of digestive tract; Z90.710 Acquired absence of both cervix and uterus; Z86.718 Personal history of other venous thrombosis and embolism; Z86.711 Personal history of pulmonary embolism; Z79.82 Long term (current) use of aspirin; Z79.899 Other long term (current) drug therapy; Z88.1 Allergy status to other antibiotic agents; Z88.7 Allergy status to serum and vaccine; Z98.84 Bariatric surgery status
CPT/HCPCS: 10879

== ENCOUNTER 2021-06-02 15:44 | Emergency (ER) | payer BC ==
[~2021-06-02] VITALS: Ht 172.7 cm; Wt 127.0 kg
[~2021-06-02 15:44] MED LIST changes: +ASA81BEC PO; +COLACE100 MG PO; +ELIQUIS5 MG PO; +ENOXAPARIN120 MG/0.1 SUBQ; +NEURONTIN 300M300 M2 PO; +NEURONTIN100 MG PO; +PERCOCET 10-321 EACH PO; +PRAMIPEXOLE DIHY1 MG PO; +ZESTRIL40 MG PO
[2021-06-02 18:30] LABS: CALCIUM 9.2 mg/dL (8.5-10.1); CREATININE 0.8 mg/dL (0.6-1.0)
[2021-06-02 20:52] LABS: ALBUMIN 3.3 g/dL (3.4-5.0); TOTAL BILIRUBIN 1.4 mg/dL (0.2-1.0); TOTAL PROTEIN 7.4 g/dL (6.4-8.2)
[2021-06-02 20:58] LABS: APTT 25.6 Seconds (24.5-32.8); INR 0.96; PROTIME 10.5 Seconds (10.5-12.1)
[2021-06-02 23:09] LABS: BASOPHILS 0.7 % (0.0-2.0); HEMOGLOBIN 7.7 gm/dL (12.0-15.0)
[2021-06-02 23:10] LABS: ABSOLUTE NEUTROPHILS 8.6 thou/uL (1.4-8.2); EOSINOPHILS 1.2 % (0.0-3.0); HEMATOCRIT 23.2 % (37.0-47.0); LYMPHOCYTES 18.3 % (24.0-44.0); MCHC 33.2 g/dL (28.0-37.0); MCV 117.5 fL (80.0-100.0); MONOCYTES 5.2 % (1.0-8.0); PLATELET COUNT 419 thou/uL (150-400); POLYS 74.6 % (36.0-66.0); RBC 1.97 mil/uL (4.20-5.00); RDW 17.4 % (10.5-14.5); WBC 12.9 thou/uL (4.0-11.0)
[2021-06-03 05:13] VITALS: BP 103/70
== END 2021-06-03 05:19 | disposition short-term general hospital (02) ==
LOC: ER 15:44
PROVIDERS: Emergency Medicine; Nurse Practitioner
DX: I77.1 Stricture of artery (principal); Z20.822 Contact with and (suspected) exposure to COVID-19; I82.402 Acute embolism and thrombosis of unspecified deep veins of left lower extremity; I25.2 Old myocardial infarction; I10 Essential (primary) hypertension; E66.01 Morbid (severe) obesity due to excess calories; Z68.41 Body mass index [BMI] 40.0-44.9, adult; Z86.718 Personal history of other venous thrombosis and embolism; Z86.711 Personal history of pulmonary embolism; Z98.84 Bariatric surgery status; Z96.652 Presence of left artificial knee joint; Z90.49 Acquired absence of other specified parts of digestive tract; Z90.711 Acquired absence of uterus with remaining cervical stump; Z98.890 Other specified postprocedural states; Z79.899 Other long term (current) drug therapy; Z79.82 Long term (current) use of aspirin; Z88.8 Allergy status to other drugs, medicaments and biological substances; Z88.2 Allergy status to sulfonamides

== ENCOUNTER 2021-11-26 07:04 | Emergency (ER) | payer BC ==
[~2021-11-26] VITALS: Ht 172.7 cm; Wt 122.0 kg
[2021-11-26 08:17] LABS: ABSOLUTE NEUTROPHILS 2.5 thou/uL (1.4-8.2); BASOPHILS 1.6 % (0.0-2.0); EOSINOPHILS 1.1 % (0.0-3.0); HEMATOCRIT 44.1 % (37.0-47.0); HEMOGLOBIN 14.5 gm/dL (12.0-15.0); LYMPHOCYTES 33.7 % (24.0-44.0); MCH 31.9 pg (26.0-34.0); MCV 96.6 fL (80.0-100.0); MONOCYTES 7.5 % (1.0-8.0); PLATELET COUNT 339 thou/uL (150-400); POLYS 56.1 % (36.0-66.0); RBC 4.57 mil/uL (4.20-5.00); RDW 20.1 % (10.5-14.5); WBC 4.4 thou/uL (4.0-11.0)
[2021-11-26 08:21] LABS: CREATININE 0.8 mg/dL (0.6-1.0); POTASSIUM 4.2 mmol/L (3.5-5.1)
[2021-11-26 08:32] LABS: TOTAL BILIRUBIN 0.7 mg/dL (0.2-1.0); TOTAL PROTEIN 7.9 g/dL (6.4-8.2)
[2021-11-26 08:37] LABS: APTT 26.2 Seconds (24.5-32.8); INR 0.95; PROTIME 10.4 Seconds (10.5-12.1)
[2021-11-26 10:02] LABS: ANISOCYTOSIS 1+; PLATELET ESTIMATE NORMAL
[2021-11-26 10:27] VITALS: BP 137/86
--- NOTE | 2021-11-26 11:33 | EKG ---
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 SOLARES : 1965 Requested By: Donis Richey Order Number: [id number] MD: Oskar Sales Measurements Intervals Christine Rate: 84 P: 48 FL: 156 QRS: 60 QRSD: 85 T: 6 QT: 390 QTc: 462 Interpretive Statements Sinus rhythm Nonspecific ST segment abnormality Low voltage Compared to ECG 05/29/2021 18:27:27 Sinus tachycardia no longer present Electronically Signed On 11-26-2021 11:32:58 WOOL BRUSHER by Oskar Sales [email or web address] <ELECTRONICALLY SIGNED> By: Oskar Sales MD, [facility] 11/26/21 1132 0701 0701 Oskar Sales MD, FACC /EPI
== END 2021-11-26 10:22 | disposition home or self-care (01) ==
LOC: ER 07:04
PROVIDERS: Emergency Medicine
DX: G57.23 Lesion of femoral nerve, bilateral lower limbs (principal); R07.89 Other chest pain; I10 Essential (primary) hypertension; E66.01 Morbid (severe) obesity due to excess calories; Z79.899 Other long term (current) drug therapy; Z90.49 Acquired absence of other specified parts of digestive tract; Z90.710 Acquired absence of both cervix and uterus; Z88.2 Allergy status to sulfonamides; Z88.5 Allergy status to narcotic agent